=== PATIENT | male | born 1965 | race Two or more races ===

== ENCOUNTER 2022-06-01 19:39 | Inpatient (IN) | payer MEDICAID, OTHER ==
[~2022-06-01] VITALS: Ht 182.9 cm; Wt 110.0 kg
[2022-06-01] MEDS ORDERED: ONDANSETRON HCL 4 MG/2 ML VIAL IV ONE (21:00)
[2022-06-01 22:20] LABS: Basophils # (auto) 0 10 ^3/uL (0-0.2); Basophils % (auto) 0.4 % (0.0-2.0); Eosinophils # (auto) 0.1 10 ^3/uL (0-0.8); Eosinophils % (auto) 1.2 % (0.0-7.0); Hematocrit 49.9 % (41.0-53.0); Hemoglobin 17.2 g/dL (13.5-17.5); Lymphocytes % (auto) 9.3 % (10.0-50.0); Mean Corpuscular Hemoglobin 31.8 pg (28.0-32.0); Mean Corpuscular Hgb Conc. 34.5 g/dL (32.0-36.0); Mean Corpuscular Volume 92.3 fL (80.0-100.0); Monocytes # (auto) 0.5 10 ^3/uL (0-1.3); Neutrophils # (auto) 8.7 10 ^3/uL (1.6-8.6); Neutrophils % (auto) 84.1 % (37.0-80.0); Red Cell Distribution Width 13.1 % (11.8-14.3); White Blood Cell 10.4 10^3/uL (4.4-10.8)
[2022-06-01 22:40] LABS: Alanine Aminotransferase 54 U/L (16-61); Alkaline Phosphatase 86 U/L (45-117); Anion Gap 10 (5-15); Aspartate Aminotransferase 30 U/L (15-37); BUN/Creatinine Ratio 9.7; Bilirubin, Total 0.8 mg/dL (0.2-1.0); Blood Alcohol < 3.0 mg/dL (0-5); Blood Urea Nitrogen 9 mg/dL (7-18); Calcium 8.7 mg/dL (8.5-10.1); Carbon Dioxide 24 mmol/L (21-32); Chloride 105 mmol/L (98-107); GFR African American 107 mL/min; GFR Non-African American 89 mL/min; Glucose 203 mg/dL (74-106); Lipase 117 U/L (73-393); Potassium 4.1 mmol/L (3.5-5.1); Sodium 139 mmol/L (136-145); Total Protein 7.5 g/dL (6.4-8.2)
[2022-06-02 00:29] LABS: Urine Bacteria NONE SEEN /hpf (None Seen); Urine Blood Negative /uL (Negative); Urine Mucus FEW (None Seen); Urine Specific Gravity 1.024 (1.001-1.035); Urine WBC 1 /hpf (0 - 3)
[2022-06-02] MEDS ORDERED: levoFLOXacin 500MG 100 ML IV ONE (00:45)
[2022-06-02] MEDS ORDERED: ONDANSETRON HCL 4 MG/2 ML VIAL IV PRN (07:00)
[2022-06-02] MEDS ORDERED: HYDROcodone-ACET 5/325MG TAB PO PRN (07:00)
[2022-06-02 08:24] VITALS: BP 114/67
[2022-06-02] MEDS: PANTOPRAZOLE 40 MG TAB PO SCH (09:43)
[2022-06-02] MEDS: LISINOPRIL 10 MG TAB PO SCH (09:44)
[2022-06-02 12:16] VITALS: BP 114/67
[2022-06-02 13:00] VITALS: BP 137/86
[2022-06-02] MEDS ORDERED: CLON-857 PO (19:48)
[2022-06-02] MEDS ORDERED: METF-490 PO (19:48)
[2022-06-02] MEDS ORDERED: TAMS0.4C36 PO (19:48)
[2022-06-02] MEDS ORDERED: FINA5TAB4 PO (19:48)
[2022-06-02] MEDS ORDERED: ATEN-60 PO (19:48)
[2022-06-02] MEDS: clonazePAM 0.5 MG TAB PO SCH (21:01)
[2022-06-02 22:00] VITALS: BP 141/83
[2022-06-02] MEDS ORDERED: LACTULOSE 20Gm/30ML SOLN PO SCH (22:00)
[2022-06-03 05:00] VITALS: BP 123/81
[2022-06-03 07:25] LABS: Basophils # (auto) 0 10 ^3/uL (0-0.2); Basophils % (auto) 0.4 % (0.0-2.0); Eosinophils # (auto) 0.2 10 ^3/uL (0-0.8); Eosinophils % (auto) 3.5 % (0.0-7.0); Hematocrit 45.5 % (41.0-53.0); Lymphocytes # (auto) 1.5 10 ^3/uL (0.4-5.4); Lymphocytes % (auto) 24.6 % (10.0-50.0); Mean Corpuscular Hemoglobin 32.1 pg (28.0-32.0); Mean Corpuscular Hgb Conc. 35.1 g/dL (32.0-36.0); Mean Corpuscular Volume 91.4 fL (80.0-100.0); Monocytes # (auto) 0.7 10 ^3/uL (0-1.3); Monocytes % (auto) 11.1 % (0.0-12.0); Neutrophils # (auto) 3.6 10 ^3/uL (1.6-8.6); Neutrophils % (auto) 60.4 % (37.0-80.0); Nucleated Red Blood Cells % 0.1 %; Red Blood Cells 4.97 10^6/uL (4.5-5.90)
[2022-06-03 07:46] LABS: Potassium 3.9 mmol/L (3.5-5.1)
[2022-06-03 07:57] LABS: Albumin 3.3 g/dL (3.4-5.0); BUN/Creatinine Ratio 10.2; Bilirubin, Total 0.6 mg/dL (0.2-1.0); Calcium 8.3 mg/dL (8.5-10.1); Total Protein 6.4 g/dL (6.4-8.2)
[2022-06-03 09:00] VITALS: BP 112/79
[2022-06-03] MEDS ORDERED: POLYETHYLENE GLYCOL 17 GM PWDR PO SCH (10:00)
[2022-06-03] MEDS ORDERED: LACTULOSE 20Gm/30ML SOLN PO SCH (10:00)
[2022-06-03] MEDS: PANTOPRAZOLE 40 MG TAB PO SCH (10:27)
[2022-06-03] MEDS: LISINOPRIL 10 MG TAB PO SCH (10:31)
[2022-06-03] MEDS ORDERED: ENOXAPARIN SOD 40 MG/0.4 ML SYRINGE SC ONE (11:30)
[2022-06-03] MEDS ORDERED: FINASTERIDE 5 MG TAB PO ONE (12:00)
[2022-06-03] MEDS ORDERED: metFORMIN HYDROCHLORIDE 500 MG TAB PO ONE (12:00)
[2022-06-03] MEDS ORDERED: TAMSULOSIN HYDROCHLORIDE 0.4 MG CAP PO ONE (12:00)
[2022-06-03 12:32] LABS: Hepatitis B Surface Antibody Positive (Negative)
[2022-06-03 13:00] VITALS: BP 125/81
[2022-06-03 13:06] LABS: Hepatitis A Total Antibody Positive (Negative)
[2022-06-03 14:30] LABS: Hepatitis C Antibody Negative (Negative)
[2022-06-03] MEDS: TAMSULOSIN HYDROCHLORIDE 0.4 MG CAP PO SCH (17:16)
[2022-06-03 22:00] VITALS: BP 128/85
[2022-06-03] MEDS: POLYETHYLENE GLYCOL 17 GM PWDR PO SCH (22:24)
[2022-06-03] MEDS: clonazePAM 0.5 MG TAB PO SCH (22:24)
[2022-06-04 05:00] VITALS: BP 117/74
[2022-06-04 06:34] LABS: Basophils # (auto) 0 10 ^3/uL (0-0.2); Basophils % (auto) 0.4 % (0.0-2.0); Eosinophils # (auto) 0.2 10 ^3/uL (0-0.8); Eosinophils % (auto) 3.3 % (0.0-7.0); Hematocrit 46.8 % (41.0-53.0); Hemoglobin 16.5 g/dL (13.5-17.5); Lymphocytes # (auto) 1.3 10 ^3/uL (0.4-5.4); Lymphocytes % (auto) 27.3 % (10.0-50.0); Mean Corpuscular Hemoglobin 32.7 pg (28.0-32.0); Mean Corpuscular Hgb Conc. 35.2 g/dL (32.0-36.0); Mean Corpuscular Volume 92.8 fL (80.0-100.0); Monocytes # (auto) 0.6 10 ^3/uL (0-1.3); Monocytes % (auto) 11.2 % (0.0-12.0); Neutrophils # (auto) 2.8 10 ^3/uL (1.6-8.6); Neutrophils % (auto) 57.8 % (37.0-80.0); Nucleated Red Blood Cells % 0.1 %; Red Blood Cells 5.05 10^6/uL (4.5-5.90); Red Cell Distribution Width 12.9 % (11.8-14.3); White Blood Cell 4.9 10^3/uL (4.4-10.8)
[2022-06-04 06:39] LABS: INR 1.08 (0.9-1.15); Partial Thromboplastin Time 28.3 sec (24.6-33.4)
[2022-06-04 07:36] LABS: Albumin 3.5 g/dL (3.4-5.0); BUN/Creatinine Ratio 9.4; Bilirubin, Total 0.6 mg/dL (0.2-1.0); Calcium 8.7 mg/dL (8.5-10.1); Potassium 3.8 mmol/L (3.5-5.1); Total Protein 6.9 g/dL (6.4-8.2)
[2022-06-04 09:00] VITALS: BP 113/76
[2022-06-04] MEDS ORDERED: SODIUM CHLORIDE LOCK 10 ML ONE (09:07)
[2022-06-04] MEDS ORDERED: LIDOCAINE VISCOUS 2% 15ML UD ONE (09:07)
[2022-06-04] MEDS ORDERED: fentaNYL CITRATE 100 MCG/2 ML VL ONE (09:07)
[2022-06-04] MEDS: FINASTERIDE 5 MG TAB PO SCH (10:00)
[2022-06-04] MEDS: POLYETHYLENE GLYCOL 17 GM PWDR PO SCH ×2 (10:00→21:28)
[2022-06-04] MEDS: PANTOPRAZOLE 40 MG TAB PO SCH (10:00)
[2022-06-04] MEDS: metFORMIN HYDROCHLORIDE 500 MG TAB PO SCH (11:00)
[2022-06-04] MEDS: LISINOPRIL 5 MG TAB PO SCH (11:30)
[2022-06-04 11:31] VITALS: BP 128/87
[2022-06-04] MEDS: MIDAZOLAM HCL 5 MG/ML-1ML VIAL ONE ×2 (14:07→14:10)
[2022-06-04] MEDS: diphenhdrAMINE HCL 50 MG/1 ML VL ONE ×2 (14:07→14:08)
[2022-06-04 17:00] VITALS: BP 125/83
[2022-06-04] MEDS: TAMSULOSIN HYDROCHLORIDE 0.4 MG CAP PO SCH (17:21)
[2022-06-04] MEDS: clonazePAM 0.5 MG TAB PO SCH (21:28)
[2022-06-04] MEDS: ACETAMINOPHEN 325 MG TAB PO PRN (21:29)
[2022-06-04 22:00] VITALS: BP 148/96
[2022-06-05] VITALS (7 sets, daily range): BP systolic 106–122; BP diastolic 60–73
[2022-06-05] MEDS: PANTOPRAZOLE 40 MG TAB PO SCH (09:50)
[2022-06-05] MEDS: metFORMIN HYDROCHLORIDE 500 MG TAB PO SCH (09:50)
[2022-06-05] MEDS: FINASTERIDE 5 MG TAB PO SCH (09:50)
[2022-06-05] MEDS: POLYETHYLENE GLYCOL 17 GM PWDR PO SCH ×2 (09:51→21:56)
[2022-06-05] MEDS: LISINOPRIL 5 MG TAB PO SCH (09:51)
[2022-06-05] MEDS ORDERED: CLON-857 PO ×2 (12:16→13:43)
[2022-06-05] MEDS ORDERED: OMEP-434 PO (12:16)
[2022-06-05] MEDS: ACETAMINOPHEN 325 MG TAB PO PRN (13:11)
[2022-06-05] MEDS ORDERED: cefTRIAXone 1GM/50ML D5W 50 ML IV ONE (16:15)
[2022-06-05] MEDS: TAMSULOSIN HYDROCHLORIDE 0.4 MG CAP PO SCH (17:39)
[2022-06-05 17:48] LABS: Urine Bacteria NONE SEEN /hpf (None Seen); Urine Blood Negative /uL (Negative); Urine Specific Gravity 1.004 (1.001-1.035); Urine WBC <1 /hpf (0 - 3)
[2022-06-05] MEDS: clonazePAM 0.5 MG TAB PO SCH (21:57)
[2022-06-06] MEDS ORDERED: DEXTROSE (50%) 50ML SYRG IV PRN (01:45)
[2022-06-06 04:49] VITALS: BP 88/57
[2022-06-06] MEDS: ACCU-CHEK COMFORT CURVE STRIP VI SCH ×2 (06:30→11:27)
[2022-06-06] MEDS: InsuLIN REG 1unit/0.01ml Soln (100units/ml) SC SCH ×2 (06:31→11:28)
[2022-06-06 08:00] VITALS: BP 109/70
[2022-06-06 09:00] VITALS: BP 109/70
[2022-06-06 09:51] LABS: Basophils # (auto) 0 10 ^3/uL (0-0.2); Basophils % (auto) 0.8 % (0.0-2.0); Eosinophils # (auto) 0.2 10 ^3/uL (0-0.8); Eosinophils % (auto) 3.9 % (0.0-7.0); Hematocrit 47.3 % (41.0-53.0); Hemoglobin 15.7 g/dL (13.5-17.5); Lymphocytes # (auto) 1.1 10 ^3/uL (0.4-5.4); Lymphocytes % (auto) 20.2 % (10.0-50.0); Mean Corpuscular Hemoglobin 31.4 pg (28.0-32.0); Mean Corpuscular Hgb Conc. 33.3 g/dL (32.0-36.0); Mean Corpuscular Volume 94.4 fL (80.0-100.0); Monocytes # (auto) 0.9 10 ^3/uL (0-1.3); Monocytes % (auto) 16.8 % (0.0-12.0); Neutrophils # (auto) 3.1 10 ^3/uL (1.6-8.6); Neutrophils % (auto) 58.3 % (37.0-80.0); Nucleated Red Blood Cells % 0.1 %; Red Blood Cells 5.01 10^6/uL (4.5-5.90); Red Cell Distribution Width 12.8 % (11.8-14.3); White Blood Cell 5.3 10^3/uL (4.4-10.8)
[2022-06-06 10:12] LABS: Potassium 4.2 mmol/L (3.5-5.1)
[2022-06-06 10:32] LABS: Albumin 3.4 g/dL (3.4-5.0); BUN/Creatinine Ratio 7.1; Bilirubin, Direct 0.2 mg/dL (0-0.2); Bilirubin, Total 0.6 mg/dL (0.2-1.0); Calcium 8.5 mg/dL (8.5-10.1); Total Protein 6.5 g/dL (6.4-8.2)
[2022-06-06] MEDS: metFORMIN HYDROCHLORIDE 500 MG TAB PO SCH (10:32)
[2022-06-06] MEDS: POLYETHYLENE GLYCOL 17 GM PWDR PO SCH (10:32)
[2022-06-06] MEDS: LISINOPRIL 5 MG TAB PO SCH (10:36)
[2022-06-06] MEDS: PANTOPRAZOLE 40 MG TAB PO SCH (10:36)
[2022-06-06] MEDS: FINASTERIDE 5 MG TAB PO SCH (10:38)
[2022-06-06 12:57] VITALS: BP 109/70
[2022-06-06 13:04] VITALS: BP 113/79
[2022-06-06 16:02] VITALS: BP 117/65
== END 2022-06-06 16:35 | disposition home or self-care (01) | DRG 392 ==
LOC: ER 19:41 → OVERFLOW 06-02 07:03 → WEST WING 06-02 18:19 → CENTRAL 06-03 05:34
PROVIDERS: ADMIT Nurse Practitioner; ATTEND Student in an Organized Health Care Education/Training Program
PROC: 0DB68ZX Excision of Stomach, Via Natural or Artificial Opening Endoscopic, Diagnostic (ICD-10-PCS; 2022-06-04)
PROC: 0DB98ZX Excision of Duodenum, Via Natural or Artificial Opening Endoscopic, Diagnostic (ICD-10-PCS; principal; 2022-06-04 14:04)
DX: K29.70 Gastritis, unspecified, without bleeding (principal); K21.00 Gastro-esophageal reflux disease with esophagitis, without bleeding; E11.65 Type 2 diabetes mellitus with hyperglycemia; I10 Essential (primary) hypertension; N20.0 Calculus of kidney; K29.80 Duodenitis without bleeding; N40.0 Benign prostatic hyperplasia without lower urinary tract symptoms; Z20.822 Contact with and (suspected) exposure to COVID-19; K75.81 Nonalcoholic steatohepatitis (NASH); K44.9 Diaphragmatic hernia without obstruction or gangrene; K58.9 Irritable bowel syndrome, unspecified; K27.9 Peptic ulcer, site unspecified, unspecified as acute or chronic, without hemorrhage or perforation; F32.A Depression, unspecified; F41.9 Anxiety disorder, unspecified; R16.0 Hepatomegaly, not elsewhere classified; Z87.11 Personal history of peptic ulcer disease; Z90.49 Acquired absence of other specified parts of digestive tract
CPT/HCPCS: 36415; 71045; 74176; 80053; 80076; 80320; 81001; 82140; 82962; 83690; 85025; 85610; 85730; 86704; 86706; 86708; 86803; 87040; 87086; 87340; 87426; G0378; J0696; J1815; J2250